=== PATIENT | female | born 1965 | race Hispanic/Latino ===

== ENCOUNTER → 2017-10-13 | Outpatient (CLI) | payer MEDICARE | LOC: OIH 16:00 | PROVIDERS: ATTEND Internal Medicine | DX: M50.01 Cervical disc disorder with myelopathy, high cervical region (principal); M47.892 Other spondylosis, cervical region; M47.26 Other spondylosis with radiculopathy, lumbar region | CPT/HCPCS: 72040; 72100 ==

== ENCOUNTER 2018-01-04 04:57 | Emergency (ER) | payer MEDICARE ==
[2018-01-04] MEDS ORDERED: DEXAMETHASONE SOD PHOSPHATE 4 MG/ML 1ML VIAL ONE (05:28)
[2018-01-04] MEDS ORDERED: HYDROCODONE/ACETAMINOPHEN 7.5/325 MG 15 ML UDCUP PO ONE (05:33)
== END 2018-01-04 05:39 | disposition home or self-care (01) ==
LOC: EDH 04:57
DX: M19.90 Unspecified osteoarthritis, unspecified site (principal); M62.838 Other muscle spasm; M79.7 Fibromyalgia; E78.5 Hyperlipidemia, unspecified; E11.9 Type 2 diabetes mellitus without complications; Z90.710 Acquired absence of both cervix and uterus
CPT/HCPCS: 96372; 99283; J1100

== ENCOUNTER 2018-04-20 10:01 | Emergency (ER) | payer MEDICARE ==
[2018-04-20] MEDS ORDERED: DIAZEPAM 5 MG TABLET ONE (10:18)
[2018-04-20 10:57] LABS: APPEARANCE,URINE CLEAR (CLEAR); BILIRUBIN,URINE NEGATIVE (NEGATIVE); COLOR,URINE YELLOW (YELLOW); GLUCOSE, URINE (UA) NEGATIVE (NEGATIVE); KETONES,URINE NEGATIVE (NEGATIVE); LEUKOCYTE ESTERASE ,URINE NEGATIVE (NEGATIVE); NITRATE,URINE POSITIVE (NEGATIVE); OCCULT BLOOD,URINE NEGATIVE (NEGATIVE); PH,URINE 5.5 (5.0-8.0); PROTEIN,URINE NEGATIVE (NEGATIVE); UROBILINOGEN,URINE 0.2 mg/dL (0.2-1.0)
[2018-04-20 11:10] LABS: BACTERIA,URINE Rare /HPF (None Seen); MUCUS,URINE Few LPF (None Seen); SQUAMOUS EPITHELIAL CELL,UR Rare /HPF (0-2); WBC,URINE 0-1 /HPF (0-1)
[2018-04-20] MEDS ORDERED: CEFTRIAXONE SODIUM 1 GM ONE (11:41)
[2018-04-20] MEDS ORDERED: LIDOCAINE HCL-MPF 2% 5ML VIAL ONE (11:42)
== END 2018-04-20 12:41 | disposition home or self-care (01) ==
LOC: EDH 10:01
DX: N12 Tubulo-interstitial nephritis, not specified as acute or chronic (principal); M19.90 Unspecified osteoarthritis, unspecified site; E11.9 Type 2 diabetes mellitus without complications; E78.5 Hyperlipidemia, unspecified; M79.7 Fibromyalgia; Z90.710 Acquired absence of both cervix and uterus
CPT/HCPCS: 81001; 74176; 96372; 99283; J0696; J3490

== ENCOUNTER → 2018-04-20 | Outpatient (CLI) | payer MEDICARE | LOC: RAH 09:31 | PROVIDERS: ATTEND Internal Medicine | DX: N28.1 Cyst of kidney, acquired (principal); N23 Unspecified renal colic | CPT/HCPCS: 74176 ==

== ENCOUNTER → 2018-12-01 | Outpatient (CLI) | payer MEDICARE | END | disposition home or self-care (01) | LOC: OIH 15:18 | PROVIDERS: ATTEND Internal Medicine | DX: M51.36 Other intervertebral disc degeneration, lumbar region (principal); M48.07 Spinal stenosis, lumbosacral region | CPT/HCPCS: 72100 ==

== ENCOUNTER → 2019-05-30 | Outpatient (CLI) | payer MEDICARE | END | disposition home or self-care (01) | LOC: OIH 11:10 | PROVIDERS: ATTEND Internal Medicine | DX: R06.00 Dyspnea, unspecified (principal); M47.819 Spondylosis without myelopathy or radiculopathy, site unspecified | CPT/HCPCS: 71046 ==

== ENCOUNTER → 2019-06-01 | Outpatient (CLI) | payer MEDICARE | END | disposition home or self-care (01) | LOC: OIH 10:34 | PROVIDERS: ATTEND Internal Medicine | DX: M19.021 Primary osteoarthritis, right elbow (principal); M25.522 Pain in left elbow | CPT/HCPCS: 73070 ==

== ENCOUNTER → 2019-06-28 | Outpatient (CLI) | payer MEDICARE ==
--- NOTE | 2019-06-28 13:38 | NUR ---
MBSS COMPLETED. NO S/S OF ASPIRATION. RECOMMEND REGULAR TEXTURE, THIN LIQUIDS, PILLS WHOLE WITH LIQUIDS. Addendum: 06/28/19 at 1339 by ANAHI GUO, [facility] Amended: Links added.
== END | disposition home or self-care (01) ==
LOC: RAH 11:13
PROVIDERS: ATTEND Otolaryngology
DX: R13.13 Dysphagia, pharyngeal phase (principal); K21.9 Gastro-esophageal reflux disease without esophagitis; M54.2 Cervicalgia; R59.0 Localized enlarged lymph nodes
CPT/HCPCS: 74230; 92611

== ENCOUNTER → 2020-03-21 | Outpatient (CLI) | payer MEDICARE ==
[2020-03-21 13:23] LABS: BASOPHILS % (AUTO) 0.7 % (0.0-5.0); HEMATOCRIT 41.4 % (36-48); LYMPHOCYTES % (AUTO) 36.9 % (21.0-51.0); MEAN CORPUSCULAR HGB CONC 32.4 g/dL (32.0-36.0); MEAN CORPUSCULAR VOLUME 83.5 fL (79-99); MONOCYTES % (AUTO) 9.8 % (3.0-13.0); NEUTROPHILS % (AUTO) 49.2 % (40.0-77.0); PLATELET COUNT (AUTO) 182 K/uL (130-400); RED BLOOD CELL COUNT(AUTO) 4.96 MIL/uL (4.00-5.50); RED CELL DISTRIBUTION WIDTH 13.6 % (11.0-15.5); WHITE BLOOD COUNT (AUTO) 5.6 K/uL (4.8-10.8)
[2020-03-21 13:34] LABS: ALBUMIN 3.8 g/dL (3.5-5.0); BILIRUBIN,TOTAL 0.4 mg/dL (0.2-1.0); CREATININE 0.8 mg/dL (0.5-1.5); POTASSIUM 4.4 mmol/L (3.5-5.1); TOTAL PROTEIN, SERUM 7.8 g/dL (6.0-8.3)
[2020-03-21 14:11] LABS: HEMOGLOBIN A1C 6.1 % (4.0-6.0)
== END | disposition home or self-care (01) ==
LOC: LAB 12:27
PROVIDERS: ATTEND Internal Medicine
DX: G37.3 Acute transverse myelitis in demyelinating disease of central nervous system (principal); F32.1 Major depressive disorder, single episode, moderate; M54.16 Radiculopathy, lumbar region; G95.9 Disease of spinal cord, unspecified; E11.9 Type 2 diabetes mellitus without complications
CPT/HCPCS: 36415; 80053; 83036; 85025

== ENCOUNTER → 2020-03-23 | Outpatient (CLI) | payer MEDICARE ==
[~2020-03-23] MED LIST: GADODIAMIDE 10 MMOL/20 ML VIAL IV ONE
== END | disposition home or self-care (01) ==
LOC: RAH 09:19
PROVIDERS: ATTEND Internal Medicine
DX: M51.17 Intervertebral disc disorders with radiculopathy, lumbosacral region (principal); M47.26 Other spondylosis with radiculopathy, lumbar region; G95.9 Disease of spinal cord, unspecified
CPT/HCPCS: 72158; A9579

== ENCOUNTER 2020-05-26 01:36 | Emergency (ER) | payer MEDICARE ==
[2020-05-26] MEDS ORDERED: DiphenhydrAMINE HCL 50 MG/ML VIAL ONE (01:58)
[2020-05-26] MEDS ORDERED: FAMOTIDINE/PF 20 MG/2 ML VIAL IV ONE (01:58)
[2020-05-26] MEDS ORDERED: METHYLPREDNISOLONE SOD SUCC 125MG/2ML VIAL ONE (01:58)
[2020-05-26 02:09] LABS: BASOPHILS % (AUTO) 0.6 % (0.0-5.0); EOSINOPHILS % (AUTO) 3.5 % (0.0-8.0); HEMATOCRIT 40.7 % (36-48); LYMPHOCYTES % (AUTO) 37.4 % (21.0-51.0); MEAN CORPUSCULAR HEMOGLOBIN 28.1 pg (27.0-33.0); MEAN CORPUSCULAR HGB CONC 33.2 g/dL (32.0-36.0); MEAN CORPUSCULAR VOLUME 84.6 fL (79-99); MONOCYTES % (AUTO) 6.7 % (3.0-13.0); NEUTROPHILS % (AUTO) 51.6 % (40.0-77.0); PLATELET COUNT (AUTO) 159 K/uL (130-400); RED BLOOD CELL COUNT(AUTO) 4.81 MIL/uL (4.00-5.50); RED CELL DISTRIBUTION WIDTH 14.3 % (11.0-15.5); WHITE BLOOD COUNT (AUTO) 4.9 K/uL (4.8-10.8)
[2020-05-26 02:15] LABS: POTASSIUM 3.4 mmol/L (3.5-5.1)
[2020-05-26 02:19] LABS: BILIRUBIN,TOTAL 0.3 mg/dL (0.2-1.0); TOTAL PROTEIN, SERUM 7.7 g/dL (6.0-8.3)
[2020-05-26] MEDS ORDERED: LIDOCAINE HCL 2% VISCOUS 15 ML UDCUP ONE (02:42)
[2020-05-26] MEDS ORDERED: 0.9% SODIUM CHLORIDE 500 ML IV BAG IV ONE (12:00)
== END 2020-05-26 03:52 | disposition home or self-care (01) ==
LOC: EDH 01:36
DX: T78.49XA Other allergy, initial encounter (principal); R07.0 Pain in throat; E11.9 Type 2 diabetes mellitus without complications; M19.90 Unspecified osteoarthritis, unspecified site; M79.10 Myalgia, unspecified site; E78.5 Hyperlipidemia, unspecified; W57.XXXA Bitten or stung by nonvenomous insect and other nonvenomous arthropods, initial encounter
CPT/HCPCS: 36415; 80053; 85025; 96374; 96375; 99284; J1200; J2930; J3490; J7040

== ENCOUNTER → 2024-02-22 | Outpatient (CLI) | payer MEDICARE | END | disposition home or self-care (01) | LOC: RAH 12:19 | PROVIDERS: ATTEND Internal Medicine | DX: M47.24 Other spondylosis with radiculopathy, thoracic region (principal); M41.85 Other forms of scoliosis, thoracolumbar region; M48.07 Spinal stenosis, lumbosacral region; M47.816 Spondylosis without myelopathy or radiculopathy, lumbar region; M41.9 Scoliosis, unspecified; M62.830 Muscle spasm of back | CPT/HCPCS: 72070; 72081; 72100 ==

== ENCOUNTER → 2025-04-04 | Outpatient (CLI) | payer MEDICARE ==
--- NOTE | 2025-04-04 19:49 | HMCIMG ---
EXAM: CT Abdomen and Pelvis Without IV contrast CLINICAL HISTORY: Pelvic and perineal pain TECHNIQUE: Axial computed tomography images of the abdomen and pelvis without intravenous contrast. CONTRAST: No IV contrast. COMPARISON: None provided. FINDINGS: LUNG BASES: The lung bases appear clear. No pleural effusions are seen. LIVER: Unremarkable. GALLBLADDER AND BILE DUCTS: The gallbladder appears within normal limits. No radioopaque gallstones are seen. No biliary ductal dilatation is evident. PANCREAS: Unremarkable. SPLEEN: Unremarkable. ADRENAL GLANDS: Unremarkable. KIDNEYS, URETERS, AND BLADDER: 1.9 cm simple cyst in the upper pole of the left kidney. There is no hydronephrosis or hydroureter. No urinary calculi are seen. Urinary bladder is underdistended, but appears grossly unremarkable. STOMACH AND BOWEL: Few diverticuli in the descending colon. Unremarkable appearance of the stomach. No evidence of bowel obstruction. No evidence suggesting enteritis or colitis. APPENDIX: Normal appendix. PERITONEUM: No free fluid. No free air. LYMPH NODES: No lymphadenopathy is evident. REPRODUCTIVE: Hysterectomy. Resolution of the right adnexal cystic lesion. VASCULATURE: No evidence of abdominal aortic aneurysm. BONES: Multilevel vacuum phenomena in the IV discs. No aggressive appearing osseous lesion. No acute osseous pathology evident. IMPRESSION: No acute abdominal or pelvic pathology demonstrated on this noncontrast CT. /[place]
== END | disposition home or self-care (01) ==
LOC: RAH 13:59
PROVIDERS: ATTEND Internal Medicine
DX: N28.1 Cyst of kidney, acquired (principal); N32.89 Other specified disorders of bladder; N83.291 Other ovarian cyst, right side; K57.90 Diverticulosis of intestine, part unspecified, without perforation or abscess without bleeding; R10.2 Pelvic and perineal pain; N95.2 Postmenopausal atrophic vaginitis; R10.30 Lower abdominal pain, unspecified; R10.32 Left lower quadrant pain; Z90.710 Acquired absence of both cervix and uterus
CPT/HCPCS: 74176

== ENCOUNTER → 2025-04-26 | Outpatient (CLI) | payer MEDICARE ==
--- NOTE | 2025-04-26 19:39 | HMCIMG ---
EXAM: CR Lumbar Spine, 4 View. CLINICAL HISTORY: RADICULOPATHY, SPONDYLOSIS LUMBAR COMPARISON: None provided. FINDINGS: BONES: No acute fracture or aggressive appearing osseous lesion. ALIGNMENT: Straightening the lumbar lordosis DISCS / DEGENERATIVE CHANGES: Moderate diffuse degenerative changes SOFT TISSUES: The soft tissues are unremarkable. MISCELLANEOUS: No intersegmental instability with flexion extension IMPRESSION: 1. Straightening the lumbar lordosis 2. Moderate diffuse degenerative changes 3. No intersegmental instability with flexion extension /[place]
--- NOTE | 2025-04-27 00:01 | HMCIMG ---
EXAM: CR Cervical spine, 3 views. CLINICAL HISTORY: Cervicalgia. Spondylolysis. Flexion and extension views. COMPARISON: Prior radiograph dated October 14, 2017 FINDINGS: Mild osteopenia. Post ACDF status at the C4-C5 and C5-C6 levels. Multilevel uncinate process hypertrophy from C4-C7 level and facet arthropathy. Severe degenerative changes and narrowing at C4-C5, C5-C6, and C6-C7 levels. Severe left facet arthropathy at the C6-C7 level. Persistent minimal anterior displacement of the C6 vertebra were C7 (2 mm). Cervical alignment is within normal limits. Normal vertebral body heights. No acute fracture. The prevertebral soft tissues are within normal limits. The included lungs are clear. IMPRESSION: No acute bony changes. Mild osteopenia. Post ACDF status at the C4-C5 and C5-C6 levels. Multilevel uncinate process hypertrophy from C4-C7 level and facet arthropathy. Severe degenerative changes and narrowing at C4-C5, C5-C6, and C6-C7 levels. Severe left facet arthropathy at the C6-C7 level. Persistent minimal anterior displacement of the C6 vertebra were C7 (2 mm). Flexion and extension views demonstrate no instability. Compared to the prior study, there is minimal anterolisthesis of C6 over C7. /[place]
== END | disposition home or self-care (01) ==
LOC: RAH 11:40
PROVIDERS: ATTEND Physical Medicine & Rehabilitation
DX: M47.22 Other spondylosis with radiculopathy, cervical region (principal); M47.26 Other spondylosis with radiculopathy, lumbar region; M48.02 Spinal stenosis, cervical region; M54.51 Vertebrogenic low back pain; M54.2 Cervicalgia; M25.78 Osteophyte, vertebrae; M47.816 Spondylosis without myelopathy or radiculopathy, lumbar region; M47.812 Spondylosis without myelopathy or radiculopathy, cervical region; Z98.1 Arthrodesis status
CPT/HCPCS: 72050; 72114

== ENCOUNTER → 2025-05-04 | Outpatient (CLI) | payer MEDICARE ==
--- NOTE | 2025-05-05 06:14 | HMCIMG ---
EXAM: MR Lumbar Spine Without Intravenous Contrast. CLINICAL HISTORY: Pain. TECHNIQUE: Magnetic resonance images of the lumbar spine in multiple planes. CONTRAST: None. COMPARISON: Lumbar spine radiograph dated February 22, 2024 FINDINGS: For this examination, spinal levels were labeled assuming five non-rib bearing, lumbar-type vertebrae with the inferior labeled L5. No acute fracture. Normal lordotic curvature. Normal vertebral body height and marrow signal intensity Vertebral body height and marrow signal intensity. Multilevel disc desiccation and degenerative reduction in disc space from T12-L1, through L5-S1 level with degenerative lateral syndesmophyte and multilevel degenerative facet arthropathy. A 2 cm T1 and T2 hyperintense lesion in the L1 vertebra and appears and appears hyperintense on STIR images. A 2.7 cm similar appearing lesion in the L3 vertebra and smaller 8 mm lesion in the posterior superior aspect of the L4 vertebra. May represent atypical hemangiomas. Conus medullaris terminates at the T12-L1 level. No abnormal epidural masses. The surrounding soft tissues are unremarkable. Individual spinal levels are described as follows: T12-L1: No disc bulge or herniation. No neural foraminal, lateral recess or spinal canal stenosis. L1-L2: Disc desiccation with degenerative reduction in disc space. Broad-based circumferential 4 mm disc bulge. Mild bilateral facet arthropathy, ligamentum flavum hypertrophy, right more than left. Mild narrowing of the L1 nerve root. No significant lateral recess or spinal canal stenosis. L2-L3: Mild disc desiccation. Broad-based circumferential 4 mm disc bulge. Moderate bilateral facet arthropathy and ligamentum flavum hypertrophy. Moderate narrowing of the left neural foramina. Moderate bilateral facet arthropathy and ligamentum flavum hypertrophy. Abutment of the left exiting L2 nerve root. No significant lateral recess or spinal canal stenosis. L3-L4: Disc desiccation with degenerative reduction in disc space. 4 mm left paracentral disc bulge with annular tear. Moderate bilateral facet arthropathy and ligamentum flavum hypertrophy. Moderate narrowing of the left neural foramina. Abutment of the left exiting L3 nerve root. Mild narrowing of the left lateral recess. Abutment of the left traversing L4 nerve root. No spinal canal stenosis. L4-L5: Mild disc desiccation with degenerative reduction in disc space. Partial left laminectomy status at the L4-L5 level. Broad-based circumferential 4 mm disc bulge. Moderate bilateral facet arthropathy and ligamentum flavum hypertrophy. Moderate narrowing of the right neural foramina and mild narrowing of the left neural foramina. Moderate narrowing of the bilateral lateral recesses, right more than left. Abutment of bilateral exiting L4 nerve root ,right more than left and right traversing L5 nerve root. L5-S1: Mild disc desiccation. Broad-based circumferential 4 mm disc bulge. Moderate bilateral facet arthropathy and ligamentum flavum hypertrophy. Moderate narrowing of the right neural foramina and mild narrowing of the left neural foramina. Moderate narrowing of the right lateral recess. Abutment of the bilateral exiting L5 nerve root, right more than left and right traversing S1 nerve root. No spinal canal stenosis. An exophytic cortical cyst from the left kidney upper pole measuring 2 cm. IMPRESSION: Normal vertebral body height and marrow signal intensity. Multilevel disc desiccation and degenerative reduction in disc space from T12-L1, through L5-S1 level, with degenerative lateral syndesmophyte and multilevel degenerative facet arthropathy. Moderate degenerative changes in the lumbar spine as described above, most prominent at L4-L5 level. Partial left laminectomy status at L4-L5 level. A 2 cm T1 and T2 hyperintense lesion in the L1 vertebra appears hyperintense on STIR images. A 2.7 cm similar appearing lesion in the L3 vertebra and smaller 8 mm lesion in the posterior superior aspect of the L4 vertebra. May represent atypical hemangiomas. Compared to the prior study, redemonstrated multilevel degenerative changes in the lumbar spine as described above. /[place]
--- NOTE | 2025-05-05 06:15 | HMCIMG ---
EXAM: MR Cervical Spine Without Intravenous Contrast. CLINICAL HISTORY: Pain. TECHNIQUE: Magnetic resonance images of the cervical spine in multiple planes. CONTRAST: None. COMPARISON: None. FINDINGS: The imaged posterior fossa is unremarkable. The craniocervical junction is intact. No acute fracture. Normal lordotic curvature. Normal vertebral body height and marrow signal intensity. Disc desiccation and disc bulges at C3-C4, C6-C7, and C7-T1 level. Minimal anterolisthesis of C6 over C7 and C7 over T1, and disc bulges and multilevel degenerative facet arthropathy. No abnormal signal involves the cervical cord. No extra-axial masses. The surrounding soft tissues are unremarkable. Level by level disease is present as follows: C1-C2: No osteoarthritis. C2-C3: No disc bulge or herniation. No neural foraminal, lateral recess or spinal canal stenosis. C3-C4: Mild degenerative reduction in disc space. 4 mm left paracentral disc bulge. Left facet arthropathy and left C4 uncinate process hypertrophy. Moderate narrowing of the left neural foramina.. Abutment of the left exiting C4 nerve root. C4-C5: Post-ACDF status with intervening disc prosthesis. A 6 mm cystic lesion in the left neural foramina is probable a perineural or Tarlov cyst. Abutting the left exiting C5 nerve root. No significant lateral recess or spinal canal stenosis. C5-C6: Post-ACDF status with intervening disc prosthesis. Bilateral C6 uncinate process hypertrophy,left more than right. Mild narrowing of the bilateral neural foramina, left more than right. No spinal canal stenosis. C6-C7: Disc desiccation with degenerative reduction in disc space and intervening disc prosthesis. 3 mm circumferential disc bulge and bilateral C7 uncinate process hypertrophy. Moderate narrowing of the left neural foramina and mild narrowing of the right neural foramina. Minimal anterolisthesis of C6 over C7. C7-T1: Mild disc desiccation. Minimal anterolisthesis of C7 over T1. Bilateral even uncinate process hypertrophy and facet arthropathy. A 12 mm cystic lesion in the right neural foramina along the right exiting C8 nerve root. Probable perineural or Tarlov cyst. The right lobe of the thyroid gland is not visualized. Susceptibility-weighted artifact in the region of the right thyroid fossa. Mildly enlarged left lobe of the thyroid gland with heterogeneous coarse signal intensity, probable changes of multinodular goiter. IMPRESSION: No evidence of acute fracture. Normal vertebral body height and marrow signal intensity. Disc desiccation and disc bulges at the C3-C4, C6-C7, and C7-T1 levels. Minimal anterolisthesis of C6 over C7 and C7 over T1, and disc bulges and multilevel degenerative facet arthropathy. Moderate degenerative changes in the cervical spine at the C3-C4 level and the C6-C7 level. A small 6 mm cystic lesion in the left neural foramina at the C4-C5 level and a 12 mm cystic lesion in the right neural foramina at the C7-T1 level, consistent with a perineural or Tarlov cyst, abutting the corresponding exiting nerve roots. The right lobe of the thyroid gland is not visualized. Susceptibility-weighted artifact in the region of the right thyroid fossa. Mildly enlarged left lobe of the thyroid gland with heterogeneous coarse signal intensity, probable changes of multinodular goiter. /[place]
== END | disposition home or self-care (01) ==
LOC: RAH 08:44
PROVIDERS: ATTEND Internal Medicine
DX: M47.22 Other spondylosis with radiculopathy, cervical region (principal); M50.31 Other cervical disc degeneration, high cervical region; M50.322 Other cervical disc degeneration at C5-C6 level; M51.35 Other intervertebral disc degeneration, thoracolumbar region; M51.370 Other intervertebral disc degeneration, lumbosacral region with discogenic back pain only; M48.07 Spinal stenosis, lumbosacral region; M47.817 Spondylosis without myelopathy or radiculopathy, lumbosacral region; N94.9 Unspecified condition associated with female genital organs and menstrual cycle; M47.816 Spondylosis without myelopathy or radiculopathy, lumbar region; M48.02 Spinal stenosis, cervical region
CPT/HCPCS: 72141; 72148